=== PATIENT | male | born 1975 | race Caucasian/White ===

== ENCOUNTER 2016-09-27 09:02 | Emergency (ER) | payer OTHER ==
[~2016-09-27] VITALS: Ht 182.9 cm; Wt 92.9 kg
[2016-09-27 09:03] VITALS: BP 125/87
== END 2016-09-27 10:15 | disposition home or self-care (01) ==
LOC: ED 09:26
DX: H66.002 Acute suppurative otitis media without spontaneous rupture of ear drum, left ear (principal)
CPT/HCPCS: 99283

== ENCOUNTER 2016-12-13 07:27 | Emergency (ER) | payer OTHER ==
[~2016-12-13] VITALS: Ht 182.9 cm; Wt 91.9 kg
[2016-12-13 07:52] VITALS: BP 145/94
== END 2016-12-13 08:35 | disposition home or self-care (01) ==
LOC: ED 08:12
DX: S90.31XA Contusion of right foot, initial encounter (principal); S20.219A Contusion of unspecified front wall of thorax, initial encounter; W19.XXXA Unspecified fall, initial encounter; Y93.17 Activity, water skiing and wake boarding; Y92.828 Other wilderness area as the place of occurrence of the external cause; Y99.8 Other external cause status
CPT/HCPCS: 99284

== ENCOUNTER → 2017-08-14 | Outpatient (CLI) | payer OTHER ==
[~2017-08-14] MED LIST: OMNIPAQUE 350 MG/ML, 75ML BOTTLE ONE
== END | disposition home or self-care (01) ==
LOC: RAD 09:26
PROVIDERS: ATTEND Family Medicine
DX: G43.909 Migraine, unspecified, not intractable, without status migrainosus (principal); J32.0 Chronic maxillary sinusitis; R10.9 Unspecified abdominal pain
CPT/HCPCS: 70470; 76700; Q9967